=== PATIENT | male | born 1950 | race Caucasian/White ===

== ENCOUNTER 2017-08-14 08:00 | Outpatient (CLI) | payer MEDICARE ==
[2017-08-14 20:20] LABS: HEMOGLOBIN A1C 0.5 g/dL
== END 2017-08-14 08:01 | disposition home or self-care (01) ==
LOC: LAB.S 08:00
PROVIDERS: ATTEND Nurse Practitioner Family
DX: R73.9 Hyperglycemia, unspecified (principal)
CPT/HCPCS: 36415; 82947; 83036

== ENCOUNTER 2017-11-29 14:25 | Outpatient (CLI) | payer MEDICARE ==
[2017-11-29 15:26] LABS: ALBUMIN 4.3 g/dL (3.2-5.5); ALBUMIN/GLOBULIN RATIO 1.8 (1.0-2.2); CREATININE 1.1 mg/dL (0.6-1.2); TOTAL PROTEIN 6.7 g/dL (6.7-8.2)
[2017-11-29 15:35] LABS: BASOPHILS % (AUTO) 0.5 %; EOSINOPHILS % (AUTO) 0.7 %; HGB - HEMOGLOBIN 15.2 g/dL (14.0-18.0); LYMPHOCYTES # (AUTO) 1.6 10^3/uL (1.5-3.5); LYMPHOCYTES % (AUTO) 22.2 %; MEAN CORPUSCULAR HEMOGLOBIN 34.1 pg (27.0-31.0); MEAN CORPUSCULAR HGB CONC 34.9 g/dL (32.0-36.0); MEAN CORPUSCULAR VOLUME 97.6 fL (80.0-94.0); MEAN PLATELET VOLUME 9.8 fL (7.4-11.4); MONOCYTES # (AUTO) 0.4 10^3/uL (0.0-1.0); MONOCYTES % (AUTO) 5.8 %; NEUTROPHILS # (AUTO) 5.1 10^3/uL (1.5-6.6); NEUTROPHILS % (AUTO) 70.8 %; PLT - PLATELET COUNT 184 10^3/uL (130-450); RED BLOOD COUNT 4.45 10^6/uL (4.70-6.10); RED CELL DISTRIBUTION WIDTH 13.4 % (12.0-15.0); WHITE BLOOD COUNT 7.2 x10^3/uL (4.8-10.8)
== END 2017-11-29 14:26 | disposition home or self-care (01) ==
LOC: LAB 14:25
PROVIDERS: ATTEND Internal Medicine Gastroenterology
DX: M06.9 Rheumatoid arthritis, unspecified (principal); L93.0 Discoid lupus erythematosus; I10 Essential (primary) hypertension
CPT/HCPCS: 36415; 80053; 85025; 93005

== ENCOUNTER 2017-12-21 11:45 | Day surgery (SDC) | payer MEDICARE ==
[2017-12-21] MEDS ORDERED: LACTATED RINGERS 1,000 ML IV ONE (12:31)
[2017-12-21] MEDS ORDERED: MIDAZOLAM 2 MG/2 ML VIAL IVP ONE (14:03)
[2017-12-21] MEDS ORDERED: fentaNYL 250 MCG/5 ML VIAL IVP ONE (14:03)
[2017-12-21 15:30] VITALS: BP 112/62
== END 2017-12-21 11:46 | disposition home or self-care (01) ==
LOC: SDS 11:45
PROVIDERS: ATTEND Internal Medicine Gastroenterology
PROC: 0DBN8ZZ Excision of Sigmoid Colon, Via Natural or Artificial Opening Endoscopic (ICD-10-PCS; 2017-12-21)
PROC: 0DBP8ZZ Excision of Rectum, Via Natural or Artificial Opening Endoscopic (ICD-10-PCS; principal; 2017-12-21 13:00)
DX: Z12.11 Encounter for screening for malignant neoplasm of colon (principal); D12.5 Benign neoplasm of sigmoid colon; K62.1 Rectal polyp; I10 Essential (primary) hypertension; M06.9 Rheumatoid arthritis, unspecified; D89.89 Other specified disorders involving the immune mechanism, not elsewhere classified; K57.30 Diverticulosis of large intestine without perforation or abscess without bleeding; Z85.820 Personal history of malignant melanoma of skin; Z79.899 Other long term (current) drug therapy; Z87.891 Personal history of nicotine dependence
CPT/HCPCS: 45380; J3010; J7120

== ENCOUNTER 2019-01-08 11:09 | Day surgery (SDC) | payer MEDICARE ==
[2019-01-08] MEDS ORDERED: LACTATED RINGERS 1,000 ML IV ONE (11:58)
[2019-01-08] MEDS ORDERED: MIDAZOLAM 2 MG/2 ML VIAL IVP ONE (12:38)
[2019-01-08] MEDS ORDERED: fentaNYL 250 MCG/5 ML VIAL IVP ONE (12:38)
[2019-01-08 13:47] VITALS: BP 107/61
== END 2019-01-08 11:10 | disposition home or self-care (01) ==
LOC: SDS 11:09
PROVIDERS: ATTEND Internal Medicine Gastroenterology
PROC: 0DJD8ZZ Inspection of Lower Intestinal Tract, Via Natural or Artificial Opening Endoscopic (ICD-10-PCS; principal; 2019-01-08 12:30)
DX: Z09 Encounter for follow-up examination after completed treatment for conditions other than malignant neoplasm (principal); Z86.010 Personal history of colon polyps; K57.30 Diverticulosis of large intestine without perforation or abscess without bleeding; K64.8 Other hemorrhoids; K64.4 Residual hemorrhoidal skin tags; I10 Essential (primary) hypertension; Z79.899 Other long term (current) drug therapy; Z85.820 Personal history of malignant melanoma of skin; Z87.891 Personal history of nicotine dependence
CPT/HCPCS: 45378; J3010; J7120

== ENCOUNTER 2019-02-28 12:40 | Outpatient (CLI) | payer MEDICARE ==
--- NOTE | 2019-03-01 08:54 | DEXA Report ---
Reason: OSTEOPOROSIS Procedure Date: 02/28/2019 Accession Number: [id number] / [id number] Procedure: DEX - Dexa Spine and/or Hip CPT Code: FULL RESULT: EXAM: Dexa Spine and/or Hip DATE: 02/28/2019 12:55 PM CLINICAL HISTORY: OSTEOPOROSIS TECHNIQUE: Dual energy x-ray absorptiometry (DXA) was performed on a [employer] System. Regions measured are the AP Spine, femoral neck, and if needed forearm. COMPARISON: 05/09/2016. In accordance with the International Society for Clinical Densitometry (ISCD) guidelines, data from previous exams may be reanalyzed using current recommendations and techniques. This is done to allow a more accurate basis for comparison with the current study. FINDINGS: The data for the lumbar spine is as follows: BMD (g/cm/cm) T-SCORE Z-SCORE REGION L1 0.822 -2.8 -2.1 L2 0.983 -2.1 -1.4 L3 L4 1.082 -1.3 -0.6 TOTAL 0.976 -2.0 -1.3 NOTE: All evaluable vertebrae are used for classification The data for the hip is as follows: BMD (g/cm/cm) T-SCORE Z-SCORE REGION Neck 0.752 -2.4 -1.2 TOTAL 0.865 -1.6 -0.9 NOTE: The femoral neck or total proximal femur, whichever is lowest, is used for classification. DXA RESULTS SUMMARY: Spine SCAN DATE AGE BMD CHANGE VS CHANGE VS PREVIOUS PREVIOUS % [birth year][age][birth year][age] 0.89 0.003 0.3 05/09/2016 [age] 0[age]973 * Denotes significant change at the 95% confidence level. Denotes dissimilar scan types or analysis methods. DXA RESULTS SUMMARY: Hip SCAN DATE AGE BMD CHANGE VS CHANGE VS PREVIOUS PREVIOUS % [birth year]2019 69.0 0[age]865 0.013 1.5 [birth year]09[birth year]2016 [age] 0.852 * Denotes significant change at the 95% confidence level. Denotes dissimilar scan types or analysis methods. IMPRESSION: THE WHO CLASSIFICATION BASED ON THE INTERNATIONAL REFERENCE STANDARD IS OSTEOPENIA. THE FRACTURE RISK IS INCREASED. RECOMMENDATION: Patients with diagnosis of osteoporosis or osteopenia should have regular bone mineral density assessment. For those eligible for Medicare, routine testing is allowed once every 2 years. Testing frequency can be increased for patients who have rapidly progressing disease or for those who are receiving medical therapy to restore bone mass. COMMENT: World Health Organization (WHO) definitions for osteoporosis and osteopenia: NORMAL BMD: T-score at -1.0 or higher, fracture risk is low OSTEOPENIA BMD: T-score between -1.0 and -2.5, fracture risk is increased. OSTEOPOROSIS BMD: T-score at -2.5 or lower, fracture risk is high. National Osteoporosis Foundation recommends: 1. Obtain adequate dietary calcium (at least 1200 mg per day) and vitamin D (400-800 international units per day). 2. Participate, as appropriate, in regular weightbearing and muscle-strengthening exercise. 3. Avoid tobacco use and reduce alcohol and caffeine intake. 4. For more detailed information see the website at www.NOF.org.
== END 2019-02-28 12:41 | disposition home or self-care (01) ==
LOC: DI 12:40
PROVIDERS: ATTEND Physician Assistant
DX: M85.89 Other specified disorders of bone density and structure, multiple sites (principal)
CPT/HCPCS: 77080

== ENCOUNTER 2019-06-29 09:51 | Outpatient (CLI) | payer MEDICARE ==
--- NOTE | 2019-07-02 23:54 | Ultrasound Report ---
Reason: RT INGUINAL HERNIA Procedure Date: 06/29/2019 Accession Number: [id number] / [id number] Procedure: US - Pelvic Limited or F/U CPT Code: Final Report FULL RESULT: EXAM: Limited pelvic ultrasound EXAM DATE: 06/29/2019 11:04 AM. CLINICAL HISTORY: Right inguinal lump, suspect hernia for 3 months. COMPARISON: None. TECHNIQUE: Real-time scanning was performed of the pelvic and upper thigh with static images obtained. FINDINGS: No inguinal hernia demonstrated. There is a bowel containing right-sided femoral hernia with a neck that measures 8 mm. This appears to spontaneously reduce. Other: There is a normal small right inguinal lymph node measuring 2.0 x 0.4 x 0.6 cm. IMPRESSION: There is a small bowel containing right-sided femoral hernia. This appears to spontaneously reduce. RADIA
== END 2019-06-29 09:52 | disposition home or self-care (01) ==
LOC: DI 09:51
PROVIDERS: ATTEND Nurse Practitioner Family
DX: K41.90 Unilateral femoral hernia, without obstruction or gangrene, not specified as recurrent (principal)
CPT/HCPCS: 76857

== ENCOUNTER 2020-05-14 15:34 | Outpatient (CLI) | payer MEDICARE ==
--- NOTE | 2020-05-14 17:26 | Ultrasound Report ---
PROCEDURE: Pelvic Limited or F/U INDICATIONS: RIGHT INGUINAL HERNIA TECHNIQUE: Real-time transabdominal scanning was performed of the pelvic organs, with image documentation. COMPARISON: None. FINDINGS: Grayscale ultrasound of the right groin was performed both without and with Valsalva. Images demonstr ate a bowel containing hernia which is partially reducible located immediately inferior to the mesh f rom prior hernia repair. The neck measures 1 x 1 cm. IMPRESSION: Partially reducible bowel containing hernia inferior to to mesh from prior hernia repair . Reviewed by: Nabeel Doshi on 05/14/2020 5:24 PM PST Approved by: Nabeel Doshi on 05/14/2020 5:24 PM PST Station ID: [id number]
== END 2020-05-14 15:35 | disposition home or self-care (01) ==
LOC: DI 15:34
PROVIDERS: ATTEND Nurse Practitioner Family
DX: K40.90 Unilateral inguinal hernia, without obstruction or gangrene, not specified as recurrent (principal)

== ENCOUNTER 2020-08-29 11:33 | Outpatient (CLI) | payer MEDICARE | END 2020-08-29 11:34 | disposition home or self-care (01) | LOC: LAB.S 11:33 | DX: Z01.818 Encounter for other preprocedural examination (principal); Z20.822 Contact with and (suspected) exposure to COVID-19 ==

== ENCOUNTER 2020-11-13 16:14 | Outpatient (CLI) | payer MEDICARE ==
--- NOTE | 2020-11-13 19:26 | Ultrasound Report ---
PROCEDURE: Duplex Ext Veins Right INDICATIONS: RLE PX TECHNIQUE: Real-time imaging, as well as color and pulse Doppler interrogation, were performed of the lower extr emity deep veins from the inguinal ligament to the popliteal fossa. COMPARISON: None. FINDINGS: The deep veins are normally compressible, and free of intraluminal thrombus. Color and pu lse Doppler demonstrate normal phasic intraluminal flow. There is normal augmentation response to di stal compression maneuver. IMPRESSION: No DVT is found. In an area of palpable lump medial proximal calf there is a intramuscul ar lobulated solid focus of material that is measuring up to 1.6 x 0.8 x 1.3 cm. This might represent a hematoma after trauma but soft tissue mass is a potential alternative cause. Follow-up by contrast -enhanced MR scanning is recommended if there are clinical concerns for sarcoma as cause of this appe arance. Reviewed by: Silvio Rodriguez MD on 11/13/2020 7:25 PM PDT Approved by: Silvio Rodriguez MD on 11/13/2020 7:25 PM PDT Station ID: [id number]
== END 2020-11-13 16:15 | disposition home or self-care (01) ==
LOC: DI 16:14
PROVIDERS: ATTEND Nurse Practitioner Family
DX: M79.604 Pain in right leg (principal)

== ENCOUNTER 2020-12-21 09:20 | Outpatient (CLI) | payer MEDICARE ==
[2020-12-21 09:48] LABS: ALBUMIN 4.4 g/dL (3.2-5.5); BILIRUBIN,TOTAL 0.8 mg/dL (0.2-1.0); CALCIUM 9.3 mg/dL (8.5-10.3); CREATININE 1.3 mg/dL (0.6-1.2); TOTAL PROTEIN 6.5 g/dL (6.7-8.2)
[2020-12-21 09:49] LABS: ALBUMIN/GLOBULIN RATIO 2.1 (1.0-2.2)
--- NOTE | 2020-12-21 13:28 | MRI Report ---
PROCEDURE: Lower Leg (Tib-Fib) RT W/WO INDICATIONS: RLE CALF MUSCLE MASS TECHNIQUE: Noncontrast coronal T1 spin echo, STIR, and T1 VISTA SPAIR; axial T1 spin echo and fat-sup pressed T2 fast spin echo; sagittal STIR. After the administration of intravenous gadolinium-based co ntrast material, additional coronal T1 VISTA SPAIR sequences were obtained. COMPARISON: Ultrasound 11/13/2020. FINDINGS: Bones: No acute trabecular bone injury. Bone marrow is normal in signal intensity without abnormal en hancement. Metallic artifact is seen at the distal fibula related to orthopedic hardware. Soft tissues: At the area of interest in the proximal medial aspect of the lower leg, there is a lobu lated fluid collection within the medial head of the gastrocnemius muscle measuring approximately 1.4 x 1.0 x 2.1 cm. This lesion demonstrates mildly increased T1-weighted signal on fat-suppressed T1-we ighted images compared to adjacent skeletal muscle. Postcontrast images are moderately compromised by prominent wrap artifact. There is mild edema and fatty infiltration of the distal medial portion of the gastrocnemius muscle, which may be related to prior trauma or denervation. Focal fatty infiltrati on of the medial head of gastrocnemius muscle just proximal to the myotendinous junction may be relat ed to prior trauma or a small intramuscular lipoma. IMPRESSION: Circumscribed 2.1 cm T2-hyperintense and mildly T1-hyperintense lesion within the medial head of the gastrocnemius muscle. No definite contrast enhancement is seen, but evaluation is mildly compromised by MR artifacts. The lesion most likely represents a small subacute to chronic hematoma related to pr ior muscle strain or trauma. Additional considerations such as a venous varix or peripheral nerve she ath tumor are felt to be less likely. However, consider follow-up contrast-enhanced MRI in 6 months t o evaluate for resolution or interval change. Reviewed by: Gonzalez Brumfield MD on 12/21/2020 12:27 PM SHARON Approved by: Gonzalez Brumfield MD on 12/21/2020 12:27 PM NYJEAN Station ID: [id number]
[2020-12-21] MEDS ORDERED: GADOBUTROL 10 MMOL/10 ML VIAL ONE (16:23)
[2020-12-21] MEDS ORDERED: GADOBUTROL 10 MMOL/10 ML VIAL IVP ONE (16:35)
== END 2020-12-21 09:21 | disposition home or self-care (01) ==
LOC: DI 09:20
PROVIDERS: ATTEND Nurse Practitioner Family
DX: R22.41 Localized swelling, mass and lump, right lower limb (principal)
CPT/HCPCS: 36415; 73720; 80053; A9585

== ENCOUNTER 2021-09-22 13:43 | Outpatient (CLI) | payer MEDICARE ==
[2021-09-22] MEDS ORDERED: GADOBUTROL 7.5 MMOL/7.5 ML VIAL ONE (14:59)
[2021-09-22] MEDS ORDERED: GADOBUTROL 7.5 MMOL/7.5 ML VIAL IVP ONE (16:12)
--- NOTE | 2021-09-22 16:42 | MRI Report ---
PROCEDURE: Lower Leg (Tib-Fib) RT W/WO INDICATIONS: MASS OF LOWER LIMB CONTRAST: IV CONTRAST: Gadavist ml: 6.5 TECHNIQUE: Noncontrast coronal T1 spin echo and STIR, sagittal T1 spin echo with fat saturation and STIR, axial T1 spin echo and T2 fast spin echo with fat saturation. After the administration of contrast, axial/ sagittal/coronal T1 spin echo with fat saturation through the right lower extremity. COMPARISON: December 21, 2020. FINDINGS: Image quality: Excellent. BONES: The visualized bone marrow demonstrates normal signal on all sequences. The overlying cortex appears intact. No abnormal intraosseous enhancement. SOFT TISSUES: A 1 x 2.1 x 1.1 cm, lobulated T2 hyperintense/T1 hypointense lesion is seen within the medial gastrocnemius, which exhibits internal contrast enhancement. The scanned muscles demonstrate normal overall bulk and internal signal. Subcutaneous tissues appear normal as well. No abnormal so ft tissue enhancement. IMPRESSION: 1. Contrast enhancing mass in the medial gastrocnemius as detailed above, concerning for and intramus cular myxoma or sarcoma. Reviewed by: Zeus Tolliver MD on 09/22/2021 4:40 PM PDT Approved by: Zeus Tolliver MD on 09/22/2021 4:40 PM PDT Station ID: [id number]
== END 2021-09-22 13:44 | disposition home or self-care (01) ==
LOC: DI 13:43
PROVIDERS: ATTEND Nurse Practitioner Family
DX: R22.41 Localized swelling, mass and lump, right lower limb (principal); M85.89 Other specified disorders of bone density and structure, multiple sites
CPT/HCPCS: 73720; 77080; A9585

== ENCOUNTER 2021-09-22 13:47 | Outpatient (CLI) | payer MEDICARE ==
--- NOTE | 2021-09-22 14:13 | DEXA Report ---
PROCEDURE: Dexa Spine and/or Hip INDICATIONS: OSTEOPOROSIS TECHNIQUE: Dual energy x-ray absorptiometry (DXA) was performed on a [employer] System. Regions measur ed are the AP Spine, femoral neck, and if needed forearm. COMPARISON: Prior studies dating back to February 28, 2019. FINDINGS: Lumbar Spine: Bone Mineral Density 0.992 g/cm/cm,T score -1.9, osteopenia; -0.7% change Left Hip: Bone Mineral Density 0.854 g/cm/cm,T score -1.7, osteopenia; -1.3% change Left Femoral Neck: Bone Mineral Density 0.76 g/cm/cm, T score -2.4, osteopenia (T score greater or equal to -1.0: NORMAL) (T score from -1.1 to -2.4: OSTEOPENIA) (T score less than or equal to -2.5 to: OSTEOPOROSIS) Impression: Bone mineral density as detailed above. Patients with diagnosis of osteoporosis or osteopenia should have regular bone mineral density assess ment. For those eligible for Medicare, routine testing is allowed once every 2 years. Testing frequ ency can be increased for patients who have rapidly progressing disease or for those who are receivin g medical therapy to restore bone mass. Reviewed by: Zeus Tolliver MD on 09/22/2021 2:12 PM PDT Approved by: Zeus Tolliver MD on 09/22/2021 2:12 PM PDT Station ID: [id number]
== END 2021-09-22 13:48 | disposition home or self-care (01) ==
LOC: DI 13:47
PROVIDERS: ATTEND Physician Assistant
DX: M85.89 Other specified disorders of bone density and structure, multiple sites (principal)

== ENCOUNTER 2021-12-16 12:53 | Day surgery (SDC) | payer MEDICARE ==
[2021-12-16] MEDS ORDERED: BUPIVACAINE 0.25% PF 10 ML VIAL ONE (12:55)
[2021-12-16] MEDS ORDERED: LIDOCAINE MPF 2%-EPI 1:200000 20 ML VIAL ONE (12:57)
[2021-12-16] MEDS ORDERED: LACTATED RINGERS 1,000 ML IV ONE ×2 (13:18→15:03)
[2021-12-16] MEDS ORDERED: DEXAMETHASONE 4 MG/ML VIAL ONE (13:37)
[2021-12-16] MEDS ORDERED: ONDANSETRON 4 MG/2 ML VIAL ONE (13:37)
[2021-12-16] MEDS ORDERED: LIDOCAINE-MPF 2% 5 ML VIAL ONE (13:37)
[2021-12-16] MEDS ORDERED: PROPOFOL 200 MG/20 ML VIAL IVP ONE (13:37)
[2021-12-16] MEDS ORDERED: fentaNYL 100 MCG/2 ML VIAL ONE (13:38)
--- NOTE | 2021-12-16 13:38 | ANESTHESIA ---
Pre-Anesthesia VS, & Labs - Diagnosis right lower leg mass - Procedure excision right lower leg mass Vital Signs: Temp Pulse Resp BP Pulse Ox 37 C 67 12 159/84 H 100 12/16/21 13:15 12/16/21 13:15 12/16/21 13:15 12/16/21 13:15 12/16/21 13:15 Height: 5 ft 10 in Weight (kg): 67 kg Body Mass Index: 21.2 BMI Classification: Healthy weight - NPO >8 hours Home Medications and Allergies Home Medications: Ambulatory Orders Alendronate [Fosamax] 70 mg PO Q7D 12/07/21 Nortriptyline [Pamelor] 30 mg PO QPM 12/07/21 Tamsulosin [Flomax] 0.8 mg PO DAILY 12/07/21 dilTIAZem HCL [Diltiazem 24Hr ER (Xr)] 180 mg PO DAILY 12/07/21 predniSONE [Deltasone] 5 mg PO DAILY 12/07/21 traMADol [Ultram] 50 mg PO Q4-6H 12/07/21 Niacin [Niacor] 500 mg PO DAILY 12/20/17 Tofacitinib Citrate [Xeljanz Xr] 11 mg PO DAILY 12/20/17 Alendronate [Fosamax] 70 mg PO Q7D 12/07/21 Nortriptyline [Pamelor] 30 mg PO QPM 12/07/21 Tamsulosin [Flomax] 0.8 mg PO DAILY 12/07/21 dilTIAZem HCL [Diltiazem 24Hr ER (Xr)] 180 mg PO DAILY 12/07/21 predniSONE [Deltasone] 5 mg PO DAILY 12/07/21 traMADol [Ultram] 50 mg PO Q4-6H 12/07/21 Allergies/Adverse Reactions: Allergies Allergy/AdvReac Type Severity Reaction Status Date / Time ceftriaxone Allergy Rash Verified 12/07/21 14:01 Penicillins AdvReac Rash Verified 12/16/21 13:13 Anes History & Medical History - Anesthetic History Anesthesia Complications: reports: No previous complications Family history of Anesthesia Complications: Denies Family history of Malignant Hyperthermia: Denies - Medical History Cardiovascular: reports: Hypertension, High cholesterol, Murmur Pulmonary: reports: None Gastrointestinal: reports: None Urinary: reports: Benign prostate hypertrophy, Frequency Musculoskeletal: reports: Osteoarthritis, Fibromyalgia, Rheumatoid arthritis, Fatigue, Chronic back pain, Other (C4, C5, C6 DJD) Endocrine/Autoimmune: reports: Other Blood Disorders: reports: Anemia Skin: reports: Psoriasis Smoking Status: Former smoker (quit in HS) Psychosocial: reports: Depression, Anxiety History of Cancer?: Yes (melanoma early ) - Surgical History General: reports: Colonoscopy Eyes Ears Nose Throat (EENT): reports: Tonsil/Adenoidectomy Orthopedic: reports: Other (L wrist osteomylitis) Exam General: Alert, Oriented x3, Cooperative, No acute distress Dental: WNL Mouth Openin Fingerbreadth Neck Mobility: Limited Mallampati classification: I Thyromental Distance: 4-6 cm Respiratory: Lungs clear, Normal breath sounds, No respiratory distress, No accessory muscle use Cardiovascular: Regular rate, Normal S1, Normal S2 Mental/Cognitive Status: Alert/Oriented X3, Normal for patient Cognitive Status: Within normal limits Plan Anesthesia Type: General, Total IV Consent for Procedure(s) Verified and Reviewed: Yes Code Status: Attempt Resuscitation ASA classification: 2-Mild systemic disease Is this case an emergency?: No
[2021-12-16] MEDS ORDERED: fentaNYL 100 MCG/2 ML VIAL IVP PRN (14:17)
[2021-12-16] MEDS ORDERED: MORPHINE 2 MG/ML CARPUJECT IVP PRN (14:17)
[2021-12-16] MEDS ORDERED: ONDANSETRON 4 MG/2 ML VIAL IVP PRN ×2 (14:17→15:08)
[2021-12-16] MEDS ORDERED: ePHEDrine 50 MG/ML VIAL IVP PRN (14:17)
[2021-12-16] MEDS ORDERED: HYDROmorphone 0.5 MG/0.5 ML SYRINGE IVP PRN (14:17)
[2021-12-16] MEDS ORDERED: METOCLOPRAMIDE 10 MG/2 ML VIAL IVP PRN (14:17)
[2021-12-16] MEDS ORDERED: NALOXONE 0.4 MG/ML VIAL IVP PRN (14:17)
[2021-12-16] MEDS ORDERED: ATROPINE ABBOJECT 1 MG/10 ML SYRINGE IVP PRN (14:17)
[2021-12-16] MEDS ORDERED: BUPIVACAINE 0.25% PF 10 ML VIAL SUBQ ONE ×2 (14:33)
[2021-12-16] MEDS ORDERED: LIDOCAINE 2%-EPI 1:100000 20 ML MDV SUBQ ONE ×2 (14:34)
[2021-12-16] MEDS ORDERED: LACTATED RINGERS 1,000 ML IV SCH (15:00)
[2021-12-16] MEDS ORDERED: oxyCODONE 5 MG TABLET PO PRN (15:08)
--- NOTE | 2021-12-16 15:18 | OPERATIVE REPORT ---
Operative Report - General Procedure Date: 12/16/21 Planned Procedure: excision right intramuscular mass calf Pre-Op Diagnosis: mass right gastrocnemius Procedure Performed: excision intramuscular mass right lower leg Post Op Diagnosis: same - Procedure Note Anesthesia Technique: General LMA, Local Pathology: sent permanent with margin normal muscle Estimated Blood Loss (mL): 5 Indications: painful mass. mri possible sarcoma or myxoma Findings: hard 1 cm mass with margin normal muscle removed Complications: none - Other Other Information/Narrative: The patient was properly identified brought to the operating room and placed in supine position. Laryngeal mask anesthesia was induced. Right leg was placed in frog-leg position and carefully padded. He was prepped and draped in a sterile fashion. Antibiotics were not given. A 3.5 cm vertical incision was made directly over the mass. Dissection proceeded down to the fascia. Fascia was opened. The mass within the gastrocnemius was taken with a 3 to 4 mm surrounding margin of normal muscle. Hemostasis was achieved with a single 3-0 Vicryl tie and cautery. Musculature and fascia was reapproximated with a running 2-0 Vicryl suture. Subcutaneous tissue was closed with interrupted 3-0 Vicryl suture. Buried interrupted subdermal 3-0 Vicryl sutures were then placed. Skin was closed with a running 4-0 Monocryl subcuticular suture. Dressing was applied. He tolerated the procedure well.
--- NOTE | 2021-12-16 15:43 | ANESTHESIA POST OP EVALUATION ---
Anesthesia Post Eval - Post Anesthesia Eval Vitals: Last Vital Signs Temp 37.0 C 12/16/21 15:26 Pulse 46 L 12/16/21 15:26 Resp 15 12/16/21 15:26 BP 128/75 12/16/21 15:26 Pulse Ox 98 12/16/21 15:26 CV Function Including HR & BP: Stable Pain Control: Satisfactory Nausea & Vomiting: Negative Mental Status: Baseline Respiratory Status: Airway Patent Hydration Status: Satisfactory Anesthesia Complications: None
[2021-12-16 15:52] VITALS: BP 142/66
== END 2021-12-16 12:54 | disposition home or self-care (01) ==
LOC: SDS 12:53
PROVIDERS: ATTEND Surgery
PROC: 0KBS0ZX Excision of Right Lower Leg Muscle, Open Approach, Diagnostic (ICD-10-PCS; principal; 2021-12-16 14:00)
DX: D36.10 Benign neoplasm of peripheral nerves and autonomic nervous system, unspecified (principal); I10 Essential (primary) hypertension; Z85.820 Personal history of malignant melanoma of skin; Z87.891 Personal history of nicotine dependence
CPT/HCPCS: 27619; J7120

== ENCOUNTER 2023-07-31 08:00 | Outpatient (CLI) | payer MEDICARE ==
--- NOTE | 2023-07-31 17:18 | XRAY Report ---
PROCEDURE: Ribs w/PA Chest 3+V LT INDICATIONS: CONTUSION TO LEFT FRONT WALL OF THORAX TECHNIQUE: 2 views of the ribs were acquired, along with a single view chest. COMPARISON: X-ray chest 03/18/2011. FINDINGS: Surgical changes and devices: None. Bones and chest wall: Old healing/healed fractures of the right lower lobe is noted. Lungs and pleura: No pneumothorax. Possible small right pleural effusion versus scarring. Lungs appe ar clear. Mediastinum: Mediastinal contours appear normal. Heart size is normal. IMPRESSION: Old healing/healed fractures of the right lower lobe is noted. Correlated with physical findings. Possible small right pleural effusion versus scarring not seen on prior study. Reviewed by: Maciel Carter MD on 07/31/2023 5:16 PM PST Approved by: Maciel Carter MD on 07/31/2023 5:16 PM PST Station ID: [id number]
== END 2023-07-31 23:59 | disposition home or self-care (01) ==
LOC: DI.S 08:00
PROVIDERS: ATTEND Emergency Medicine
DX: S20.212A Contusion of left front wall of thorax, initial encounter (principal)

== ENCOUNTER 2023-12-08 08:00 | Outpatient (CLI) | payer MEDICARE ==
--- NOTE | 2023-12-08 13:12 | XRAY Report ---
PROCEDURE: Finger(s) LT INDICATIONS: LEFT THUMB LACERATION/PAIN TECHNIQUE: AP hand, 2 views of the first finger(s) acquired. COMPARISON: None FINDINGS: Bones: No fractures or dislocations. No suspicious bony lesions. Dorsal soft tissue swelling noted over the interphalangeal joint. No radiopaque foreign bodies. No lytic or blastic lesion. Soft tissues: No suspicious soft tissue calcifications. IMPRESSION: Soft tissue swelling without foreign body or lytic lesion Reviewed by: Jerrod Garcia MD on 12/08/2023 12:10 PM AKDT Approved by: Jerrod Garcia MD on 12/08/2023 12:10 PM AKDT Station ID: [id number]
== END 2023-12-08 23:59 | disposition home or self-care (01) ==
LOC: DI.S 08:00
PROVIDERS: ATTEND Emergency Medicine
DX: M79.645 Pain in left finger(s) (principal)